=== PATIENT | female | born 1980 | race Caucasian/White ===

== ENCOUNTER 2016-03-12 17:14 | Emergency (ER) | payer MEDICAID ==
[2016-03-12] MEDS ORDERED: EMTRICITABINE/TENOFOVIR 200/300 MG TAB PO SCH (18:54)
[2016-03-12] MEDS ORDERED: ISENTRESS 400 MG TABLET PO SCH (21:00)
== END 2016-03-12 20:15 | disposition home or self-care (01) ==
LOC: ER 17:14
DX: S61.431A Puncture wound without foreign body of right hand, initial encounter (principal); Z77.21 Contact with and (suspected) exposure to potentially hazardous body fluids; W27.8XXA Contact with other nonpowered hand tool, initial encounter; Y92.89 Other specified places as the place of occurrence of the external cause
CPT/HCPCS: 36415; 81025; 86701; 86706; 86803; 87340